=== PATIENT | female | born 1980 | race Caucasian/White ===

== ENCOUNTER 2018-03-24 00:32 | Emergency (ER) | payer OTHER ==
[~2018-03-24] VITALS: Ht 162.6 cm; Wt 68.0 kg
[~2018-03-24 00:32] MED LIST: CYMBALTA30 MG PO; DIFLUCAN50 MG PO; IMITREX25 MG PO; KLONOPIN1 MG PO; NORCO 5-325 TA1 EACH PO; PREMARIN0.625 MG PO; PRILOSEC OTC20 MG PO; TYLENOL WITH C1 EACH PO; ULTRAM50 MG PO
[2018-03-24] MEDS ORDERED: SODIUM CHLORIDE 0.9% 1000ML 1,000 ML IV STA (00:58)
[2018-03-24] MEDS ORDERED: ONDANSETRON HCL INJ 2 MG/ML VIAL IV STA (00:58)
[2018-03-24] MEDS ORDERED: PANTOPRAZOLE 40 MG 10ML VIAL IV STA (00:58)
[2018-03-24] MEDS ORDERED: MORPHINE SULFATE 2 MG/ML SYR IV STA (00:58)
[2018-03-24 01:21] LABS: BASOPHILS % 0.4 % (0.0-1.0); EOSINOPHILS # (AUTO) 0.1 (0.0-0.4); HEMATOCRIT 38.5 % (34.2-44.1); HEMOGLOBIN 12.8 g/dL (12.0-16.0); LYMPHOCYTES # (AUTO) 2.3 (1.0-3.2); LYMPHOCYTES % 21.9 % (18.0-39.1); MEAN CORPUSCULAR HEMOGLOBIN 27.6 pg (28-32); MEAN CORPUSCULAR HGB CONC 33.2 g/dL (31-35); MONOCYTES # (AUTO) 0.7 (0.2-0.8); MONOCYTES % 6.3 % (4.4-11.3); NEUTROPHILS # (AUTO) 7.2 (2.1-6.9); PLATELET COUNT 350 x10e3/uL (140-360); RED BLOOD COUNT 4.64 x10e6/uL (3.6-5.1); RED CELL DISTRIBUTION WIDTH 13.2 % (11.7-14.4)
[2018-03-24 01:32] LABS: INR 1.05; PROTHROMBIN TIME 12.9 seconds (11.9-14.5)
[2018-03-24 01:33] LABS: PARTIAL THROMBOPLASTIN TIME 26.4 seconds (23.8-35.5)
[2018-03-24 01:42] LABS: ALANINE AMINOTRANSFERASE 14 IU/L (0-55); ALBUMIN/GLOBULIN RATIO 1.1 (0.8-2.0); ALKALINE PHOSPHATASE 81 IU/L (40-150); AMYLASE 90 U/L (25-125); BLOOD UREA NITROGEN 12 mg/dL (7-26); BUN/CREATININE RATIO 16 (6-25); CALCIUM 9.5 mg/dL (8.4-10.2); CARBON DIOXIDE 24 mmol/L (22-29); CHLORIDE 104 mmol/L (98-107); CREATINE KINASE 75 IU/L (29-168); CREATININE, SERUM 0.75 mg/dL (0.57-1.11); EST GLOMERULAR FILTRATION RATE > 60 ML/MIN (60-); GLUCOSE 112 mg/dL (74-118); LIPASE 49 U/L (8-78); MAGNESIUM 2.7 MG/DL (1.3-2.1); SODIUM 137 mmol/L (136-145)
[2018-03-24 01:50] LABS: BILIRUBIN,URINE NEGATIVE (NEGATIVE); CLARITY,URINE CLEAR (CLEAR); COLOR,URINE YELLOW (YELLOW); KETONES,URINE NEGATIVE (NEGATIVE); LEUKOCYTE ESTERASE ,URINE NEGATIVE (NEGATIVE); NITRITE,URINE NEGATIVE (NEGATIVE); PROTEIN,URINE DIPSTICK NEGATIVE (NEGATIVE); URINE UROBILINOGEN 0.2 mg/dL (0.2 - 1)
[2018-03-24 02:00] LABS: BACTERIA,URINE FEW /HPF; EPITHELIAL CELLS,URINE RARE /LPF; RBC,URINE 0-5 /HPF (0-5); WBC,URINE (MAN) 0-5 /HPF (0-5)
--- NOTE | 2018-03-24 02:14 | Diagnostic Imaging Report ---
CHEST 2 VIEWS, Technique: CHEST 2 VIEWS Comparison: 01/08/2017 Clinical history: \S\PLEURITIC CP/LUQ ABD PAIN \S\[id number] \S\0123 DISCUSSION: Stable/normal appearance of the heart, mediastinum, lungs and pleural spaces. IMPRESSION: No acute abnormality Signed by: Dr Cathy Head MD on 03/24/2018 2:10 AM
[2018-03-24] MEDS ORDERED: SODIUM CHLORIDE 0.9% 50ML 50 ML ONE (02:48)
[2018-03-24] MEDS ORDERED: IOPAMIDOL 370 MG/ML 200 ML INFUS..BTL INJ ONE (02:48)
--- NOTE | 2018-03-24 03:50 | Diagnostic Imaging Report ---
EXAM: CT CHEST W, CT ABDOMEN/PELVIS W INDICATION: \S\PE PROTOCOL, PLEURITIC CHEST/LUQ ABD PAIN, POS D-DIMER \S\[id number] \S\0308 \S\LUQ ABD PAIN \S\[id number] \S\0308 COMPARISON: None. TECHNIQUE: Chest, abdomen and pelvis were scanned utilizing a multidetector helical scanner from the lung apex to the pubic symphysis. CT pulmonary embolism protocol was performed of the chest. Coronal and sagittal reformations were obtained IV CONTRAST: 100 mL Isovue 300/370 FINDINGS: LINES and TUBES: None. LUNGS/AIRWAYS/PLEURA: The lungs are unremarkable.. The pleural spaces are clear. HEART AND MEDIASTINUM: No lymphadenopathy. The heart is normal in size.. There is no pericardial effusion. No evidence of acute pulmonary artery embolism. Main pulmonary artery and aorta are normal in caliber. HEPATOBILIARY/GALLBLADDER: No focal lesions. Cholecystectomy SPLEEN: No splenomegaly. PANCREAS: No masses or ductal dilation. ADRENALS: No nodules. KIDNEYS/URETERS: No hydronephrosis. GI TRACT: No obstruction or wall thickening. Normal appendix. PELVIC ORGANS/BLADDER: Unremarkable. Left pelvic phleboliths. LYMPH NODES: No lymphadenopathy. VESSELS: Unremarkable. PERITONEUM / RETROPERITONEUM: No free air or fluid. BONES/SOFT TISSUES: No acute bony findings. Bilateral breast implants. IMPRESSION: 1. No acute pulmonary embolism. 2. No acute abnormality in the abdomen or pelvis. Signed by: Dr Cathy Head MD on 03/24/2018 3:47 AM
--- NOTE | 2018-03-24 03:50 | Diagnostic Imaging Report ---
EXAM: CT CHEST W, CT ABDOMEN/PELVIS W INDICATION: \S\PE PROTOCOL, PLEURITIC CHEST/LUQ ABD PAIN, POS D-DIMER \S\[id number] \S\0308 \S\LUQ ABD PAIN \S\[id number] \S\0308 COMPARISON: None. TECHNIQUE: Chest, abdomen and pelvis were scanned utilizing a multidetector helical scanner from the lung apex to the pubic symphysis. CT pulmonary embolism protocol was performed of the chest. Coronal and sagittal reformations were obtained IV CONTRAST: 100 mL Isovue 300/370 FINDINGS: LINES and TUBES: None. LUNGS/AIRWAYS/PLEURA: The lungs are unremarkable.. The pleural spaces are clear. HEART AND MEDIASTINUM: No lymphadenopathy. The heart is normal in size.. There is no pericardial effusion. No evidence of acute pulmonary artery embolism. Main pulmonary artery and aorta are normal in caliber. HEPATOBILIARY/GALLBLADDER: No focal lesions. Cholecystectomy SPLEEN: No splenomegaly. PANCREAS: No masses or ductal dilation. ADRENALS: No nodules. KIDNEYS/URETERS: No hydronephrosis. GI TRACT: No obstruction or wall thickening. Normal appendix. PELVIC ORGANS/BLADDER: Unremarkable. Left pelvic phleboliths. LYMPH NODES: No lymphadenopathy. VESSELS: Unremarkable. PERITONEUM / RETROPERITONEUM: No free air or fluid. BONES/SOFT TISSUES: No acute bony findings. Bilateral breast implants. IMPRESSION: 1. No acute pulmonary embolism. 2. No acute abnormality in the abdomen or pelvis. Signed by: Dr Cathy Head MD on 03/24/2018 3:47 AM
[2018-03-24 04:42] VITALS: BP 114/83
== END 2018-03-24 05:32 | disposition home or self-care (01) ==
LOC: ER 00:32
DX: R10.12 Left upper quadrant pain (principal); K29.50 Unspecified chronic gastritis without bleeding
CPT/HCPCS: 36415; 71046; 71260; 74177; 80053; 81001; 82150; 82550; 82553; 83690; 83735; 84484; 85025; 85379; 85610; 85730; 87086; 93005; 96374; 96376; 99284; J2270; J2405; J7030; Q9967

== ENCOUNTER 2018-10-12 09:57 | Emergency (ER) | payer SELFPAY ==
[~2018-10-12] VITALS: Ht 162.6 cm; Wt 68.0 kg
--- OUTSIDE RECORDS SUMMARY | 2018-10-12 10:00 | XMS REPORT | Continuity of Care Document ---
Author Author [facility] Interface Address Unknown Phone Unavailable Problems Problem Status Onset Date Classification Date Reported Comments Source Z00.00 - [facility] Active 01/06/2018 [facility] N64.4 - MASTODYNIA Active 01/12/2017 [facility] Anxiety Resolved Problem 03/26/2018 [facility] Reflux esophagitis Resolved Problem 03/26/2018 [facility] Migraine Resolved Problem 03/26/2018 [facility] Depression Resolved Problem 03/26/2018 [facility] Medications Medication Details Route Status Patient Instructions Ordering Provider Order Date Source Diclofenac Sodium 0.01 MG/MG Topical Gel [Voltaren] 2 gm=1 appl, TOP, QID, PRN for pain, # 100 gm, 0 Refill(s), Pharmacy: [facility] Active 03/23/2018 [facility] amitriptyline 25 mg oral tablet 25 mg=1 tab, PO, Bedtime, # 30 tab, 1 Refill(s), other Active 03/23/2018 [facility] gabapentin 300 MG Oral Capsule 300 mg=1 cap, PO, TID, # 270 cap, 0 Refill(s), Pharmacy: [facility] Active 03/23/2018 [facility] DULoxetine 60 mg oral delayed release capsule 60 mg=1 cap, PO, Daily, # 30 cap, 0 Refill(s), Pharmacy: [facility] Active 03/23/2018 [facility] SUMAtriptan 100 mg oral tablet 100 mg=1 tab, PO, Daily, PRN for migraine headache, # 18 tab, 0 Refill(s), Pharmacy: [facility] Active 03/23/2018 [facility] Doxycycline Monohydrate 50 MG Oral Capsule 100 mg=2 cap, PO, Daily, # 60 tab, 5 Refill(s), Pharmacy: [facility] Active 11/15/2017 [facility] duloxetine 30 MG Enteric Coated Capsule [Cymbalta] 30 mg=1 cap, PO, Daily, # 90 cap, 0 Refill(s), Pharmacy: [facility] Active 11/09/2017 [facility] Doxycycline Monohydrate 100 MG Oral Tablet 100 mg=1 tab, PO, Daily, # 30 tab, 2 Refill(s), Pharmacy: [facility] No Longer Active 11/09/2017 [facility] gabapentin 100 MG Oral Capsule 1-3 cap, PO, TID, PRN pain, # 90 cap, 0 Refill(s), Pharmacy: [facility] Active 11/09/2017 [facility] Estrogens, Conjugated (PENITENTIARY) 0.9 MG Oral Tablet [Premarin] 0.9 mg=1 tab, PO, Daily, # 90 tab, 0 Refill(s), Pharmacy: [facility] Active 11/09/2017 [facility] amitriptyline 50 mg oral tablet 50 mg=1 tab, PO, Bedtime, # 30 tab, 0 Refill(s), Pharmacy: [facility] Active 11/09/2017 [facility] Estrogens, Conjugated (PENITENTIARY) 1.25 MG Oral Tablet [Premarin] 1.25 mg=1 tab, PO, Daily, # 90 tab, 0 Refill(s), Pharmacy: [facility] No Longer Active 09/28/2017 [facility] duloxetine 30 MG Enteric Coated Capsule [Cymbalta] 30 mg=1 cap, PO, Daily, # 90 cap, 0 Refill(s), Pharmacy: [facility] No Longer Active 09/26/2017 [facility] clonazePAM 1 mg oral tablet 1 mg=1 tab, PO, BID, PRN Anxiety, # 60 tab, 0 Refill(s) Active 09/22/2017 [facility] doxycycline monohydrate 100 mg oral tablet 100 mg=1 tab, PO, Daily, # 30 tab, 2 Refill(s), Pharmacy: [facility] Active 07/25/2017 [facility] clonazePAM 1 mg oral tablet 1 mg=1 tab, PO, BID, PRN Anxiety, # 60 tab, 0 Refill(s) Active 07/25/2017 [facility] amitriptyline 25 mg oral tablet 25 mg=1 tab, PO, Bedtime, # 90 tab, 0 Refill(s), Pharmacy: [facility] Active 07/25/2017 [facility] Estrogens, Conjugated (PENITENTIARY) 1.25 MG Oral Tablet [Premarin] 1.25 mg=1 tab, PO, Daily, # 90 tab, 0 Refill(s), Pharmacy: [facility] Active 07/25/2017 [facility] Sumatriptan 50 MG Oral Tablet [Imitrex] 50 mg=1 tab, PO, Daily, PRN for migraine headache, # 9 tab, 1 Refill(s), Pharmacy: [facility] Active 07/25/2017 [facility] Allergies, Adverse Reactions, Alerts Substance Category Reaction Severity Reaction type Status Date Reported Comments Source Immunizations Immunization Date Given Site Status Last Updated Comments Source Results Order Name Results Value Reference Range Date Interpretation Comments Source Chest 2 views DX Chest 2 views DX EXAM: Chest 2 views DX HISTORY: - R06.00 Dyspnea, unspecified; R07.81 Pleurodynia COMPARISON: None The heart size is normal. The lungs are clear. There is no pleural effusion or pneumothorax. No acute skeletal abnormality. IMPRESSION: No acute abnormality. 01/06/2018 - - Read by: Andrae Giron MD Dictated Date/time: 01/06/18 12:47 Electronically Signed by: Andrae Giron MD 01/06/18 12:48 FINAL REPORT [facility] Breast Limited Charlie US Breast Limited Charlie US - BREAST LIMITED CHARLIE US ULTRASOUND OF BOTH BREASTS: 04/28/2017 CLINICAL: N64.4 Mastodynia/N64.4 Mastodynia. Comparison is made to exam dated: 04/28/2017 mammogram - [facility]. Color flow and real-time ultrasound of both breasts were performed on the areas of interest. No abnormalities were seen sonographically in either breast. There are scattered fiborcystic changes in the areas of patient's pain. IMPRESSION: BENIGN There is no sonographic evidence of malignancy. A 5 year screening mammogram is recommended. Professional services are provided by the [facility]. Alex Reyez M.D., cm/jeimy:04/28/2017 09:17:16 Mainframe Systems Administrator: Yoselyn Estrada, [facility] This exam was dictated and interpreted by [id number] for ZEINA Norberto. letter sent: Normal exam Ultrasound BI-RADS: 2 Benign 04/28/2017 - - Read by: Santy Calvillo MD Dictated Date/time: 04/28/17 09:17 Electronically Signed by: Santy Calvillo MD 04/28/17 09:17 FINAL REPORT ZEINA [facility] Breast Mammo Diag CHARLIE incl CAD MA Breast Mammo Diag CHARLIE incl CAD MA - BREAST MAMMO DIAG CHARLIE INCL CAD MA BILATERAL FIRST EVER DIGITAL DIAGNOSTIC MAMMOGRAM WITH CAD: 04/28/2017 CLINICAL: Mastodynia/N64.4. Current study was evaluated with a Computer Aided Detection (CAD) system. No prior exams were available for comparison. The tissue of both breasts is heterogeneously dense, which could obscure detection of small masses. Bilateral breast implants are intact. No significant masses, calcifications, or other findings are seen in either breast. IMPRESSION: BENIGN There is no mammographic abnormality seen in either breast to correspond with the pain, however further workup with ultrasound is recommended. There is no mammographic evidence of malignancy. Professional services are provided by the [facility] Diagnostic [facility]. Alex Reyez M.D. cm/penrad:04/28/2017 08:31:48 Mainframe Systems Administrator: Danielle BERRY)(M), [facility] This exam was dictated and interpreted by [id number] for ZEINA Norberto. Mammogram BI-RADS: 2 Benign 04/28/2017 - - Read by: Santy Calvillo MD Dictated Date/time: 04/28/17 08:31 Electronically Signed by: Santy Calvillo MD 04/28/17 08:31 FINAL REPORT ZEINA [facility] Vital Signs Vital Sign Value Date Comments Source BMI Calculated 25.9 03/23/2018 [facility] Height 162.56 cm 03/23/2018 [facility] Weight 68.438 03/23/2018 [facility] Temperature Oral (F) 98.3 F 03/23/2018 [facility] Systolic (mm Hg) 130 03/23/2018 [facility] Diastolic (mm Hg) 87 03/23/2018 [facility] Heart Rate 76 03/23/2018 [facility] Height 162.56 cm 11/09/2017 [facility] BMI Calculated 25.48 11/09/2017 [facility] Weight 67.33 11/09/2017 [facility] Systolic (mm Hg) 109 11/09/2017 [facility] Diastolic (mm Hg) 76 11/09/2017 [facility] Heart Rate 66 11/09/2017 [facility] Temperature Oral (F) 98.0 F 11/09/2017 [facility] Temperature Oral (F) 98.2 F 07/25/2017 [facility] Heart Rate 63 07/25/2017 [facility] Systolic (mm Hg) 113 07/25/2017 [facility] Diastolic (mm Hg) 78 07/25/2017 [facility] BMI Calculated 24.34 07/25/2017 [facility] Weight 64.318 07/25/2017 [facility] Height 162.56 cm 07/25/2017 [facility] Encounters Location Location Details Encounter Type Encounter Number Reason For Visit Attending Provider ADM Date DC Date Status Source Outpatient [id number] CORINA MARTIN 11/18/2016 Active [facility] Outpatient [id number] CORINA MARTIN 12/17/2016 Active [facility] Outpatient [id number] CORINA MARTIN 01/07/2017 Active [facility] Outpatient [id number] CORINA MARTIN 02/23/2017 Active [facility] Outpatient [id number] CORINA MARTIN 04/08/2017 Active [facility] Outpatient [id number] CORINA MARTIN 04/14/2017 Active [facility] [id number] Corina Martin 04/28/2017 04/29/2017 [facility] Outpatient [id number] CORINA MARTIN 05/10/2017 Active [facility] Outpatient [id number] CORINA MARTIN 07/25/2017 Active [facility] Outpatient [id number] Corina Martin 07/25/2017 07/26/2017 Medical Group [facility] Phone Message [id number] 09/22/2017 09/24/2017 Medical Group [facility] Phone Message [id number] 09/26/2017 09/28/2017 Medical Group [facility] Phone Message [id number] 09/28/2017 09/30/2017 [facility] Outpatient [id number] CORINA GENERILLO 10/04/2017 Active [facility] Outpatient [id number] CORINA GENERILLO 11/09/2017 Active [facility] Outpatient [id number] Corina Generillo 11/09/2017 11/10/2017 [facility] Outpatient [id number] CORINA GENERILLO 12/07/2017 Active [facility] Ambulatory Pre-Reg [id number] Corina Generillo 12/07/2017 12/07/2017 [facility] Outpatient [id number] BROCK NICHOL 01/06/2018 Active [facility] Outpatient [id number] CORINA GENERILLO 01/19/2018 Active [facility] Outpatient [id number] CORINA GENERILLO 03/23/2018 Active [facility] Outpatient [id number] Corina Generillo 03/23/2018 03/24/2018 [facility] Outpatient [id number] CORINA GENERILLO 04/21/2018 Active [facility] Procedures Procedure Code Date Perfomer Comments Source Colonoscopy<sup>1</sup> [id number] 10/28/[address] Farhat Ortega [facility] Mammogram<sup>2</sup> [id number] 09/12/2016 normal [facility] Operation [id number] 09/12/2015 [facility] Operation [id number] 09/12/2015 [facility] Breast augmentation [id number] 09/12/2014 [facility] Breast augmentation [id number] 09/12/2014 [facility] Appendectomy [id number] 09/12/2013 [facility] Cholecystectomy [id number] 09/12/2013 [facility] Appendectomy [id number] 09/12/2013 [facility] Cholecystectomy [id number] 09/12/2013 [facility] section [id number] [facility] section [id number] [facility]
--- OUTSIDE RECORDS SUMMARY | 2018-10-12 10:00 | XMS REPORT ---
Author Author [facility] Address Unknown Phone Unavailable Care Team Providers Care [employer] Developer Name Role Phone Viji ASAB Unavailable Unavailable Problems This patient has no known problems. Allergies, Adverse Reactions, Alerts This patient has no known allergies or adverse reactions. Medications This patient has no known medications. Results Test Description Test Time Test Comments Text Results Atomic Results Result Comments CT ABDOMEN/PELVIS W 2018-03-24 03:35:00 [place] [address] Patient Name: SUE ARGUETA MR #: [id number] : 1980 Age/Sex: 37/F Req #: [id number] Adm Physician: Ordered by: SIERRA SAAB MD Report #: [id number] Location: ER Room/Bed: Procedure: [id number] CT/CT ABDOMEN/PELVIS W Exam Date: 03/24/18 Exam Time: 0308 REPORT STATUS: Signed EXAM: CT CHEST W, CT ABDOMEN/PELVIS W INDICATION: S PE PROTOCOL, PLEURITIC CHEST/LUQ ABD PAIN, POS D-DIMER COMPARISON: None. TECHNIQUE: Chest, abdomen and pelvis were scanned utilizing a multidetector helical scanner from the lung apex to the pubic symphysis. CT pulmonary embolism protocol was performed of the chest. Coronal and sagittal reformations were obtained IV CONTRAST: 100 mL Isovue 300/370 FINDINGS: LINES and TUBES: None. LUNGS/AIRWAYS/PLEURA: The lungs are unremarkable.. The pleural spaces are clear. HEART AND MEDIASTINUM: No lymphadenopathy. The heart is normal in size.. There is no pericardial effusion. No evidence of acute pulmonary artery embolism. Main pulmonary artery and aorta are normal in caliber. HEPATOBILIARY/GALLBLADDER: No focal lesions. Cholecystectomy SPLEEN: No splenomegaly. PANCREAS: No masses or ductal dilation. ADRENALS: No nodules. KIDNEYS/URETERS: No hydronephrosis. GI TRACT: No obstruction or wall thickening. Normal appendix. PELVIC ORGANS/BLADDER: Unremarkable. Left pelvic phleboliths. LYMPH NODES: No lymphadenopathy. VESSELS: Unremarkable. PERITONEUM / RETROPERITONEUM: No free air or fluid. BONES/SOFT TISSUES: No acute bony findings. Bilateral breast implants. IMPRESSION: 1. No acute pulmonary embolism. 2. No acute abnormality in the abdomen or pelvis. Signed by: Dr Carola Head MD on 03/24/2018 3:47 AM Dictated By: CAROLA HEAD MD 6 Transcribed By: RODDY on 03/24/18346 COPY TO: SIERRA SAAB MD CT CHEST W 2018-03-24 03:35:00 [place] [address] Patient Name: SUE ARGUETA MR #: [id number] : 1980 Age/Sex: 37/F Req #: [id number] Adm Physician: Ordered by: SIERRA SAAB MD Report #: [id number] Location: ER Room/Bed: Procedure: [id number] CT/CT CHEST W Exam Date: 03/24/18 Exam Time: 0308 REPORT STATUS: Signed EXAM: CT CHEST W, CT ABDOMEN/PELVIS W INDICATION: S PE PROTOCOL, PLEURITIC CHEST/LUQ ABD PAIN, POS D-DIMER COMPARISON: None. TECHNIQUE: Chest, abdomen and pelvis were scanned utilizing a multidetector helical scanner from the lung apex to the pubic symphysis. CT pulmonary embolism protocol was performed of the chest. Coronal and sagittal reformations were obtained IV CONTRAST: 100 mL Isovue 300/370 FINDINGS: LINES and TUBES: None. LUNGS/AIRWAYS/PLEURA: The lungs are unremarkable.. The pleural spaces are clear. HEART AND MEDIASTINUM: No lymphadenopathy. The heart is normal in size.. There is no pericardial effusion. No evidence of acute pulmonary artery embolism. Main pulmonary artery and aorta are normal in caliber. HEPATOBILIARY/GALLBLADDER: No focal lesions. Cholecystectomy SPLEEN: No splenomegaly. PANCREAS: No masses or ductal dilation. ADRENALS: No nodules. KIDNEYS/URETERS: No hydronephrosis. GI TRACT: No obstruction or wall thickening. Normal appendix. PELVIC ORGANS/BLADDER: Unremarkable. Left pelvic phleboliths. LYMPH NODES: No lymphadenopathy. VESSELS: Unremarkable. PERITONEUM / RETROPERITONEUM: No free air or fluid. BONES/SOFT TISSUES: No acute bony findings. Bilateral breast implants. IMPRESSION: 1. No acute pulmonary embolism. 2. No acute abnormality in the abdomen or pelvis. Signed by: Dr Carola Haed MD on 03/24/2018 3:47 AM Dictated By: CAROLA HEAD MD 6 Transcribed By: RODDY on 03/24/18346 COPY TO: SIERRA SAAB MD CHEST 2 VIEWS 2018-03-24 02:10:00 [place] [address] Patient Name: SUE ARGUETA MR #: [id number] : 1980 Age/Sex: 37/F Req #: [id number] Adm Physician: Ordered by: SIERRA SAAB MD Report #: [id number] Location: ER Room/Bed: Procedure: [id number] DX/CHEST 2 VIEWS Exam Date: 03/24/18 Exam Time: 0123 REPORT STATUS: Signed CHEST 2 VIEWS, Technique: CHEST 2 VIEWS Comparison: 01/08/2017 Clinical history: S PLEURITIC CP/LUQ ABD PAIN S [id number] S 0123 DISCUSSION: Stable/normal appearance of the heart, mediastinum, lungs and pleural spaces. IMPRESSION: No acute abnormality Signed by: Dr Carola Head MD on 03/24/2018 2:10 AM Dictated By: CAROLA HEAD MD 9 Transcribed By: RODDY on 03/24/18209 COPY TO: SIERRA SAAB MD
--- OUTSIDE RECORDS SUMMARY | 2018-10-12 10:00 | XMS REPORT | Summary of Care ---
Author Author [facility] Address Unknown Phone Unavailable Encounter HENRIK Lamar(FIN) [id number] Date(s): 03/23/18 - 03/23/18 [facility] [id number] [place] [address]- [phone] Discharge Disposition: Home or Self Care Attending Physician: Lizzie Martin MD Vital Signs Most recent to 1 oldest [Reference Range]: Height 162.56 cm (03/23/18 1:10 PM) Temperature Oral 98.3 DegF [96.4-99.1 DegF] (03/23/18 1:10 PM) Blood Pressure 130/87 mmHg [90-140/60-90 mmHg] (03/23/18 1:10 PM) Peripheral Pulse 76 bpm Rate [60-100 bpm] (03/23/18 1:10 PM) Weight 68.438 kg (03/23/18 1:10 PM) Body Mass Index 25.9 m2 (03/23/18 1:10 PM) Problem List Condition Effective Dates Status Health Status Informant Anxiety(Confirmed) Resolved Reflux Resolved esophagitis(Confirme d) Migraine(Confirmed) Resolved Depression(Confirmed Resolved ) Allergies, Adverse Reactions, Alerts Substance Reaction Severity Status NKDA Active Medications amitriptyline 25 mg oral tablet 25 mg=1 tab, PO, Bedtime, # 30 tab, 1 Refill(s), other Start Date: 03/23/18 Status: Ordered DULoxetine 60 mg oral delayed release capsule 60 mg=1 cap, PO, Daily, # 30 cap, 0 Refill(s), Pharmacy: [facility] Start Date: 03/23/18 Status: Ordered gabapentin 300 mg oral capsule 300 mg=1 cap, PO, TID, # 270 cap, 0 Refill(s), Pharmacy: [facility] Start Date: 03/23/18 Status: Ordered SUMAtriptan 100 mg oral tablet 100 mg=1 tab, PO, Daily, PRN for migraine headache, # 18 tab, 0 Refill(s), Pharm acy: [facility] Start Date: 03/23/18 Status: Ordered Voltaren Topical 1% topical gel 2 gm=1 appl, TOP, QID, PRN for pain, # 100 gm, 0 Refill(s), [facility]: [facility] Start Date: 03/23/18 Status: Ordered Results No data available for this section Immunizations No data available for this section Procedures Procedure Date Related Diagnosis Body Site Status Colonoscopy1 10/28/17 Completed Mammogram2 09/12/16 Completed Operation 2015 Completed Breast augmentation 2014 Completed Appendectomy 2013 Completed Cholecystectomy 2013 Completed section Completed 1Colonoscopy performed by Dr. Farhat Ortega 2normal Social History Social History Type Response Exercise Exercise duration: 60. Exercise frequency: 3-4 times/week. Self assessment: Good condition. Alcohol Never Smoking Status Never smoker; Exposure to Tobacco Smoke None; Cigarette Smoking Last 365 Days No; Reg Smoking Cessation Counseling No entered on: 03/23/18 Assessment and Plan No data available for this section
[2018-10-12] MEDS ORDERED: TETANUS/DIPHTHERIA TOX ADULT 0.5 ML SYR IM ONE (10:30)
[2018-10-12] MEDS ORDERED: LIDOCAINE HCL 1% LOCAL INJ 20 ML VIAL INJ ONE (10:30)
[2018-10-12] MEDS ORDERED: NEOMYCIN/POLYMYX/BACITR OINT 0.9 GM PKT TOP ONE (10:30)
--- NOTE | 2018-10-12 10:45 | NUR ---
Td given to left deltoid Neosporin and dressing placed (tube gauze and coban)
== END 2018-10-12 11:56 | disposition home or self-care (01) ==
LOC: ER 09:57
DX: S61.211A Laceration without foreign body of left index finger without damage to nail, initial encounter (principal); W26.0XXA Contact with knife, initial encounter; Y99.0 Civilian activity done for income or pay
CPT/HCPCS: 90714; 99283